=== PATIENT | male | born 1960 | race Two or more races ===

== ENCOUNTER → 2022-03-29 | Emergency (ER) | payer OTHER ==
[~2022-03-29] VITALS: Ht 182.9 cm; Wt 88.0 kg
[~2022-03-29] MED LIST: ADULT LOW DOSE81 M1 PO; AMOX-CLAV 875-1 EACH PO; ANESTHETIC ORAL14 GM MM; ATORVASTATIN CA80 MG PO; CLONAZEPAM0.5 M1 PO; METOPROLOL SUCC50 MG PO; NITROGLYCERIN0.4 MG SL; PANTOPRAZOLE SO40 M2 PO; RESTORIL30 M1 PO; ZESTRIL10 M1
== END | disposition home or self-care (01) ==
LOC: ER 08:39
DX: K05.10 Chronic gingivitis, plaque induced (principal); K04.7 Periapical abscess without sinus; I10 Essential (primary) hypertension